=== PATIENT | male | born 1965 | race Caucasian/White ===

== ENCOUNTER → 2022-01-17 11:31 | Outpatient (CLI) | payer OTHER, SELFPAY ==
--- NOTE | 2022-01-17 | DI.MRI.S_ITS ---
PROCEDURE: MR THORACIC SPINE WO CON INDICATIONS: HEADACHE/NUMBNESS THUMB AND T6/CHRONIC KNEE PAIN TECHNIQUE: Noncontrast sagittal T1 spine echo and T2 fast spin echo, sagittal STIR, axial T1 and T2 fast spin echo through the thoracic spine. COMPARISON: [facility], MR, MR HEAD/BRAIN WO CON, 01/17/2022, 11:47. FINDINGS: Image quality: Excellent. Alignment and Curvature: Accentuated thoracic kyphosis is seen. No focal AP alignment abnormality is seen. Bone Marrow: Marrow is of normal overall signal. No acute vertebral body compression fractures. Several areas of chronic compression deformity are seen, without acute features, which are worst at T8 and at T9, with approximately 40% centrally at T8 and approximately 40% loss of height anteriorly at T9. Several Schmorl's nodes can be seen. Scattered foci are seen, which are hyperintense on T1-weighted and T2-weighted imaging, which are most consistent with benign vertebral body hemangiomas. Spinal Cord: Visualized spinal cord is normal in size and signal. Paraspinous Soft Tissues: No paravertebral masses. Miscellaneous: Age-appropriate degenerative changes are seen throughout, scattered levels of mild disc space narrowing. Lower cervical spine degenerative changes are seen. At T10-T11, there is a central/right disc protrusion, with mild central canal narrowing. Mild bilateral neural foraminal narrowing can be seen at this level. Milder degenerative changes are seen elsewhere. IMPRESSION: Focal mild degenerative change at T10-T11. Remote lower thoracic spine degenerative changes are seen. Dictated by: Jorge Guzman M.D. on 01/17/2022 at 12:13 Approved by: Jorge Guzman M.D. on 01/17/2022 at 12:17
--- NOTE | 2022-01-17 | DI.MRI.S_ITS ---
PROCEDURE: MR KNEE LT WO CON INDICATIONS: HEADACHE/NUMBNESS THUMB AND T6/CHRONIC KNEE PAIN TECHNIQUE: Noncontrast sagittal PD fast spin echo and T2 fast spin echo with fat saturation, sagittal 3-D FLASH with fat saturation; coronal T1 spin echo and PD fast spin echo with fat saturation, and axial PD fast spin echo with fat saturation through the knee. COMPARISON: None. FINDINGS: Image quality: Excellent. Menisci: There is full-thickness radial tearing of the body of the medial meniscus. Superimposed horizontal oblique tearing of the posterior horn is seen extending to the middle third of the femoral articular surface. There is mild extrusion of the medial meniscal body. Intermediate intrasubstance signal is seen within the body of the lateral meniscus without a discrete tear. Cruciate ligaments: The anterior and posterior cruciate ligaments appear intact. Medial structures: The medial collateral ligament is mildly medially bowed around the medial meniscus, but the ligament fibers appear to be intact. The semimembranosus tendon insertions and meniscocapsular junction appear intact. Visualized portions of the pes anserinus tendons appear normal. No abnormal bursal fluid. Lateral structures: The lateral collateral ligament, long and short heads of the biceps femoris tendon appear intact. The popliteus tendon appears intact. No signs of posterolateral corner injury. Iliotibial band appears normal. Anterior structures: The quadriceps and patellar tendons appear intact. Patellar alignment is normal. No femoral trochlear dysplasia or ventral trochlear prominence. No edema in the infrapatellar fat pad. Bones and cartilage: No bone marrow contusions or fractures. Mild to moderate partial-thickness cartilage thinning and irregularity is seen in the central weight-bearing portion of the medial femorotibial compartment. The lateral compartment articular cartilages are grossly maintained. There is high-grade and possibly full-thickness cartilage loss at the trochlear groove. High-grade partial-thickness cartilage loss is seen at the median ridge of the patella. Tricompartmental marginal osteophytes are present. Joint space: No significant joint effusion. Trace medial popliteal cyst. Varicose veins are noted in the anterior subcutaneous tissues. IMPRESSION: 1. Complex tearing of the medial meniscus with a full-thickness radial component at the meniscal body and a horizontal oblique component at the posterior horn. There is mild extrusion of the meniscal body. 2. Mild intrasubstance degeneration in the lateral meniscus without a discrete tear. 3. Intact cruciate and collateral ligaments. No acute trabecular bone injury. 4. 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 Grade 2-3 chondromalacia is seen in the medial compartment. Tricompartmental marginal osteophytes. 1. Dictated by: Marcos Cartagena M.D. on 01/17/2022 at 15:04 Approved by: Marcos Cartagena M.D. on 01/17/2022 at 15:14
--- NOTE | 2022-01-17 | DI.MRI.S_ITS ---
PROCEDURE: MR HEAD/BRAIN WO CON INDICATIONS: HEADACHE/NUMBNESS THUMB AND T6/CHRONIC KNEE PAIN TECHNIQUE: Noncontrast axial T1 spin echo, axial T2 fast spin echo, sagittal and axial FLAIR, coronal T2 fast spin echo, axial gradient echo, axial diffusion and ADC through the brain. COMPARISON: [facility], MR, MR THORACIC SPINE WO CON, 01/17/2022, 12:15. FINDINGS: Image quality: Diagnostic, with note made of motion artifact. CSF Spaces: Basal cisterns are patent. No extra-axial fluid collections. Ventricles are normal in size and shape. Brain: No intracranial masses or hemorrhage. Hopkins/white matter interface is normal. Brainstem appears normal. Scattered foci of T2 weighted hyperintensity can be seen within the periventricular and deep white matter, which are attributed to early chronic small vessel ischemic change. Diffusion-weighted images demonstrate no acute ischemic insult. No chronic ischemic insults. Normal intravascular flow voids are present. Skull and face: Calvarium has normal marrow signal. Orbits appear normal. Sinuses: There is a moderate amount of fluid seen within the mastoid air cells. No significant paranasal sinus disease is seen. IMPRESSION: No findings of acute or subacute infarction can be seen. No imaging explanation is found for this patient's presenting symptoms. Likely early chronic small vessel ischemic change is seen. There is a moderate amount of stool seen within the mastoid air cells on both sides. Please correlate for potential clinical signs of mastoiditis. Dictated by: Jorge Guzman M.D. on 01/17/2022 at 12:11 Approved by: Jorge Guzman M.D. on 01/17/2022 at 12:13
== END ==
PROVIDERS: Family Provider Internal Medicine Gastroenterology; Referring Provider Student in an Organized Health Care Education/Training Program; Visit Provider Student in an Organized Health Care Education/Training Program
DX: R51.9 Headache, unspecified (principal); M47.814 Spondylosis without myelopathy or radiculopathy, thoracic region; S83.232A Complex tear of medial meniscus, current injury, left knee, initial encounter; M94.262 Chondromalacia, left knee; R20.0 Anesthesia of skin; M25.569 Pain in unspecified knee
CPT/HCPCS: 70551; 72146; 73721